=== PATIENT | female | born 1965 | race African-American/Black ===

== ENCOUNTER 2017-12-28 16:13 | Emergency (ER) | payer OTHER ==
[~2017-12-28] VITALS: Ht 154.9 cm; Wt 72.0 kg
[2017-12-28] MEDS ORDERED: KETOROLAC 60MG/2ML VIAL IM ONE (17:30)
[2017-12-28 19:10] VITALS: BP 168/98
== END 2017-12-28 19:50 | disposition home or self-care (01) ==
LOC: ER 18:30
DX: S13.4XXA Sprain of ligaments of cervical spine, initial encounter (principal); I10 Essential (primary) hypertension; Z90.49 Acquired absence of other specified parts of digestive tract; Z90.710 Acquired absence of both cervix and uterus; Z98.890 Other specified postprocedural states; Z88.8 Allergy status to other drugs, medicaments and biological substances; Z91.040 Latex allergy status; V79.59XA Passenger on bus injured in collision with other motor vehicles in traffic accident, initial encounter; Y93.89 Activity, other specified; Y92.89 Other specified places as the place of occurrence of the external cause; Y99.8 Other external cause status
CPT/HCPCS: 72050; 96372; 99284; J1885